=== PATIENT | male | born 1950 | race Caucasian/White ===

== ENCOUNTER → 2017-08-31 | Outpatient (CLI) | payer MEDICARE, OTHER | END | disposition home or self-care (01) | LOC: Rad HDHVI 13:33 | PROVIDERS: ATTEND Internal Medicine Cardiovascular Disease | DX: I10 Essential (primary) hypertension (principal); G45.9 Transient cerebral ischemic attack, unspecified | CPT/HCPCS: 93306; 93880 ==

== ENCOUNTER 2017-09-15 22:13 | Emergency (ER) | payer MEDICARE, OTHER ==
[~2017-09-15] VITALS: Ht 172.7 cm; Wt 75.3 kg
[2017-09-15 23:05] LABS: Basophils # (auto) 0 uL; Basophils % (auto) 0.6 % (0.0-2.0); Eosinophils # (auto) 0 uL; Eosinophils % (auto) 0.5 % (0.0-7.0); Hematocrit 47.4 % (41.0-53.0); Hemoglobin 16.4 g/dL (13.5-17.5); Lymphocytes # (auto) 1.1 uL; Lymphocytes % (auto) 15.2 % (10.0-50.0); Mean Corpuscular Hemoglobin 30.5 pg (28.0-32.0); Mean Corpuscular Hgb Conc. 34.6 g/dL (32.0-36.0); Mean Corpuscular Volume 88.3 fL (80.0-100.0); Mean Platelet Volume 7.6 fL (6.9-10.8); Monocytes # (auto) 0.6 uL; Monocytes % (auto) 9.1 % (0.0-12.0); Neutrophils # (auto) 5.2 uL; Neutrophils % (auto) 74.6 % (37.0-80.0); Nucleated Red Blood Cells % 0.1 %; Platelet Count (auto) 205 10^3/uL (140-450); Red Cell Distribution Width 13.4 % (11.8-14.3)
[2017-09-15 23:21] LABS: Albumin 3.7 g/dL (3.4-5.0); Anion Gap 7 (5-15); Aspartate Aminotransferase 23 U/L (15-37); BUN/Creatinine Ratio 21.2; Blood Urea Nitrogen 25 mg/dL (7-18); Calcium 9.2 mg/dL (8.5-10.1); Carbon Dioxide 29 mmol/L (21-32); Chloride 102 mmol/L (98-107); GFR African American 79 mL/min; GFR Non-African American 65 mL/min; Glucose 104 mg/dL (74-106); Potassium 3.7 mmol/L (3.5-5.1); Sodium 138 mmol/L (136-145)
[2017-09-15 23:24] LABS: Alkaline Phosphatase 63 U/L (45-117); Total Protein 7.4 g/dL (6.4-8.2)
[2017-09-16 08:50] VITALS: BP 125/88
== END 2017-09-16 09:21 | disposition home or self-care (01) ==
LOC: ER 22:13
DX: R41.0 Disorientation, unspecified (principal); R42 Dizziness and giddiness; I10 Essential (primary) hypertension; M19.90 Unspecified osteoarthritis, unspecified site; R10.9 Unspecified abdominal pain; E07.9 Disorder of thyroid, unspecified; Z86.73 Personal history of transient ischemic attack (TIA), and cerebral infarction without residual deficits
CPT/HCPCS: 36415; 70450; 76705; 80053; 80320; 85025

== ENCOUNTER → 2018-09-27 | Outpatient (CLI) | payer MEDICARE, BC | END | disposition home or self-care (01) | LOC: Rad HDHVI 14:09 | PROVIDERS: ATTEND Internal Medicine Cardiovascular Disease | DX: I12.9 Hypertensive chronic kidney disease with stage 1 through stage 4 chronic kidney disease, or unspecified chronic kidney disease (principal); N18.2 Chronic kidney disease, stage 2 (mild); G45.9 Transient cerebral ischemic attack, unspecified | CPT/HCPCS: 93306 ==

== ENCOUNTER → 2018-10-12 | Outpatient (CLI) | payer MEDICARE, BC ==
[~2018-10-12] VITALS: Ht 174 cm; Wt 74.8 kg
[~2018-10-12] MED LIST: ADENOSINE 63 MG in GIVE UN-DILUTED 0 ML IV ONE; ADENOSINE 90 MG/30 ML INJ IV ONE
== END | disposition home or self-care (01) ==
LOC: Rad HDHVI 14:33
PROVIDERS: ATTEND Internal Medicine Cardiovascular Disease
DX: I10 Essential (primary) hypertension (principal); R55 Syncope and collapse
CPT/HCPCS: 78452; 93005; 96374; 96375; A9500; J0153

== ENCOUNTER → 2019-10-08 | Outpatient (CLI) | payer MEDICARE, BC | END | disposition home or self-care (01) | LOC: Rad HDHVI 12:25 | PROVIDERS: ATTEND Internal Medicine Cardiovascular Disease | DX: I08.8 Other rheumatic multiple valve diseases (principal); R00.2 Palpitations; R07.89 Other chest pain; I10 Essential (primary) hypertension | CPT/HCPCS: 93306 ==

== ENCOUNTER → 2021-04-02 | Outpatient (CLI) | payer MEDICARE, BC | END | disposition home or self-care (01) | LOC: Rad HDHVI 16:08 | PROVIDERS: ATTEND Internal Medicine Cardiovascular Disease | DX: I10 Essential (primary) hypertension (principal); E78.5 Hyperlipidemia, unspecified | CPT/HCPCS: 93306 ==

== ENCOUNTER → 2021-04-21 | Outpatient (CLI) | payer MEDICARE, BC ==
[~2021-04-21] VITALS: Ht 175.3 cm; Wt 70.3 kg
[~2021-04-21] MED LIST changes: +ADENOSINE 59 MG in GIVE UN-DILUTED 0 ML IV ONE; -ADENOSINE 63 MG in GIVE UN-DILUTED 0 ML IV ONE; -ADENOSINE 90 MG/30 ML INJ IV ONE
== END | disposition home or self-care (01) ==
LOC: Rad HDHVI 08:35
PROVIDERS: ATTEND Internal Medicine Cardiovascular Disease
DX: I08.2 Rheumatic disorders of both aortic and tricuspid valves (principal); I10 Essential (primary) hypertension; E78.5 Hyperlipidemia, unspecified; R07.9 Chest pain, unspecified; Z82.49 Family history of ischemic heart disease and other diseases of the circulatory system
CPT/HCPCS: 78452; 93005; 96374; 96375; A9500

== ENCOUNTER → 2022-11-18 | Outpatient (CLI) | payer MEDICARE, BC ==
[~2022-11-18] VITALS: Ht 175.3 cm; Wt 69.4 kg
[~2022-11-18] MED LIST changes: +ADENOSINE 58 MG in GIVE UN-DILUTED 0 ML IV ONE; -ADENOSINE 59 MG in GIVE UN-DILUTED 0 ML IV ONE; +ADENOSINE 90 MG/30 ML INJ IV ONE
== END | disposition home or self-care (01) ==
LOC: Rad HDHVI 13:06
PROVIDERS: ATTEND Internal Medicine Cardiovascular Disease
DX: R07.89 Other chest pain (principal); I10 Essential (primary) hypertension; E78.5 Hyperlipidemia, unspecified; Z82.49 Family history of ischemic heart disease and other diseases of the circulatory system
CPT/HCPCS: 78452; 93005; 96374; 96375; A9500; J0153

== ENCOUNTER 2023-04-02 09:26 | Inpatient (IN) | payer MEDICARE, BC ==
[~2023-04-02] VITALS: Ht 172.7 cm; Wt 67.4 kg
[2023-04-02 12:27] LABS: Basophils # (auto) 0 10 ^3/uL (0-0.2); Basophils % (auto) 0.3 % (0.0-2.0); Eosinophils # (auto) 0 10 ^3/uL (0-0.8); Eosinophils % (auto) 0.4 % (0.0-7.0); Hematocrit 44.9 % (41.0-53.0); Hemoglobin 15.1 g/dL (13.5-17.5); Lymphocytes # (auto) 0.8 10 ^3/uL (0.4-5.4); Mean Corpuscular Hemoglobin 29.7 pg (28.0-32.0); Mean Corpuscular Hgb Conc. 33.7 g/dL (32.0-36.0); Mean Corpuscular Volume 88.1 fL (80.0-100.0); Monocytes # (auto) 0.7 10 ^3/uL (0-1.3); Monocytes % (auto) 10.6 % (0.0-12.0); Neutrophils # (auto) 5.2 10 ^3/uL (1.6-8.6); Neutrophils % (auto) 76.7 % (37.0-80.0); Nucleated Red Blood Cells % 0.1 %; Red Cell Distribution Width 13.8 % (11.8-14.3); White Blood Cell 6.8 10^3/uL (4.4-10.8)
[2023-04-02 12:33] LABS: Albumin 3.8 g/dL (3.4-5.0); BUN/Creatinine Ratio 28.3 (10.0-20.0); Calcium 9.5 mg/dL (8.5-10.1); Potassium 3.4 mmol/L (3.5-5.1)
[2023-04-02 12:35] LABS: Bilirubin, Total 1.6 mg/dL (0.2-1.0); Total Protein 7.3 g/dL (6.4-8.2)
[2023-04-02] MEDS ORDERED: cefTRIAXone 1GM/50ML D5W 50 ML IV ONE (13:00)
[2023-04-02] MEDS ORDERED: CLINDAMYCIN 600MG IV 50 ML IV ONE (13:00)
[2023-04-02] MEDS ORDERED: MORPHINE SULFATE INJ 2 MG/ml SYRG IV PRN (14:45)
[2023-04-02] MEDS ORDERED: NITROGLYCERIN 0.4 MG SL TAB SL PRN (14:45)
[2023-04-02] MEDS: ceFAZolin 2 GM/D5W100ml 100 ML IV SCH (22:26)
[2023-04-02] MEDS: ASCORBIC ACID 500 MG TAB PO SCH (22:26)
[2023-04-02] MEDS: MAGNESIUM OXIDE 400 MG TAB PO SCH (22:26)
[2023-04-03] MEDS: ceFAZolin 2 GM/D5W100ml 100 ML IV SCH ×3 (06:12→22:00)
[2023-04-03] MEDS: TRIAMTERENE/HCTZ 75/50MG TABLET PO SCH (10:00)
[2023-04-03 10:34] LABS: Basophils # (auto) 0 10 ^3/uL (0-0.2); Basophils % (auto) 0.4 % (0.0-2.0); Eosinophils # (auto) 0.1 10 ^3/uL (0-0.8); Eosinophils % (auto) 2.4 % (0.0-7.0); Lymphocytes # (auto) 0.9 10 ^3/uL (0.4-5.4); Lymphocytes % (auto) 16.3 % (10.0-50.0); Mean Corpuscular Hemoglobin 30.3 pg (28.0-32.0); Mean Corpuscular Hgb Conc. 34.2 g/dL (32.0-36.0); Mean Corpuscular Volume 88.8 fL (80.0-100.0); Monocytes # (auto) 0.6 10 ^3/uL (0-1.3); Monocytes % (auto) 10.5 % (0.0-12.0); Neutrophils # (auto) 3.9 10 ^3/uL (1.6-8.6); Neutrophils % (auto) 70.4 % (37.0-80.0); Nucleated Red Blood Cells % 0.1 %; Red Blood Cells 5.29 10^6/uL (4.5-5.90); Red Cell Distribution Width 13.9 % (11.8-14.3); White Blood Cell 5.5 10^3/uL (4.4-10.8)
[2023-04-03 10:39] LABS: Albumin 3.9 g/dL (3.4-5.0); Calcium 8.8 mg/dL (8.5-10.1); Potassium 3.4 mmol/L (3.5-5.1)
[2023-04-03 10:43] LABS: BUN/Creatinine Ratio 21.7 (10.0-20.0); Bilirubin, Total 1.1 mg/dL (0.2-1.0); Total Protein 7.2 g/dL (6.4-8.2)
[2023-04-03] MEDS: MAGNESIUM OXIDE 400 MG TAB PO SCH ×2 (11:01→22:24)
[2023-04-03] MEDS: CHOLECALCIFEROL (VITD3) 1,000UNIT=25mCg TAB PO SCH (11:01)
[2023-04-03] MEDS: POTASSIUM CHL 20 Meq TABLET PO SCH (11:01)
[2023-04-03] MEDS: FLUTICASONE PROP NASAL SPR 0.05 % (50MCG) 16GM EACHNOSTRI SCH (11:24)
[2023-04-03] MEDS: FLORASTOR (S. BOULARDII) 250 MG CAP PO SCH (11:29)
[2023-04-03] MEDS: MULTIPLE VITAMINS W/ MINERALS TAB PO SCH (11:29)
[2023-04-03 17:04] VITALS: BP 130/85
[2023-04-03] MEDS ORDERED: TRIA75TA55 (20:30)
[2023-04-03] MEDS ORDERED: CHOL20007 PO (20:30)
[2023-04-03] MEDS ORDERED: POTA-180 PO (20:30)
[2023-04-03] MEDS ORDERED: MAGN400T6 PO (20:30)
[2023-04-03] MEDS ORDERED: ASCO500T11 PO (20:30)
[2023-04-03] MEDS ORDERED: MULT-908 OR (20:31)
[2023-04-03] MEDS ORDERED: TERB1CRE32 EX (20:34)
[2023-04-03] MEDS ORDERED: LACTCAP35 OR (20:34)
[2023-04-03] MEDS ORDERED: MUPI2OIN2 EX (20:34)
[2023-04-03] MEDS ORDERED: FLUT1SUS (20:34)
[2023-04-03] MEDS ORDERED: SIME1CAP7 PO (20:37)
[2023-04-03 22:00] VITALS: BP 127/79
[2023-04-03] MEDS ORDERED: ceFAZolin 1GM/50ML 100 ML IV ONE (22:07)
[2023-04-03] MEDS: ASCORBIC ACID 500 MG TAB PO SCH (22:24)
[2023-04-04] VITALS (7 sets, daily range): BP systolic 119–137; BP diastolic 61–82
[2023-04-04] MEDS: ceFAZolin 2 GM/D5W100ml 100 ML IV SCH ×3 (05:40→22:27)
[2023-04-04] MEDS: MULTIPLE VITAMINS W/ MINERALS TAB PO SCH (09:42)
[2023-04-04] MEDS: POTASSIUM CHL 20 Meq TABLET PO SCH (09:42)
[2023-04-04] MEDS: CHOLECALCIFEROL (VITD3) 1,000UNIT=25mCg TAB PO SCH (09:42)
[2023-04-04] MEDS: FLORASTOR (S. BOULARDII) 250 MG CAP PO SCH (09:42)
[2023-04-04] MEDS: MAGNESIUM OXIDE 400 MG TAB PO SCH ×2 (09:42→22:19)
[2023-04-04] MEDS: TRIAMTERENE/HCTZ 75/50MG TABLET PO SCH (09:43)
[2023-04-04] MEDS: FLUTICASONE PROP NASAL SPR 0.05 % (50MCG) 16GM EACHNOSTRI SCH (10:55)
[2023-04-04] MEDS ORDERED: POTASSIUM EFFERVESENT TAB 25 MEQ PO ONE (14:30)
[2023-04-04] MEDS: ASCORBIC ACID 500 MG TAB PO SCH (18:02)
[2023-04-05] VITALS (7 sets, daily range): BP systolic 114–142; BP diastolic 72–83
[2023-04-05] MEDS: ceFAZolin 2 GM/D5W100ml 100 ML IV SCH ×3 (06:46→22:00)
[2023-04-05] MEDS: MULTIPLE VITAMINS W/ MINERALS TAB PO SCH (09:34)
[2023-04-05] MEDS: MAGNESIUM OXIDE 400 MG TAB PO SCH ×2 (09:35→22:00)
[2023-04-05] MEDS: TRIAMTERENE/HCTZ 75/50MG TABLET PO SCH (09:35)
[2023-04-05] MEDS: POTASSIUM CHL 20 Meq TABLET PO SCH (09:35)
[2023-04-05] MEDS: FLORASTOR (S. BOULARDII) 250 MG CAP PO SCH (09:36)
[2023-04-05] MEDS: FLUTICASONE PROP NASAL SPR 0.05 % (50MCG) 16GM EACHNOSTRI SCH (09:37)
[2023-04-05] MEDS: CHOLECALCIFEROL (VITD3) 1,000UNIT=25mCg TAB PO SCH (09:43)
[2023-04-05] MEDS: ASCORBIC ACID 500 MG TAB PO SCH (16:45)
[2023-04-06 05:00] VITALS: BP 120/77
[2023-04-06] MEDS: ceFAZolin 2 GM/D5W100ml 100 ML IV SCH ×2 (06:28→14:46)
[2023-04-06 08:10] VITALS: BP 142/98
[2023-04-06 09:00] VITALS: BP 142/73
[2023-04-06] MEDS: MULTIPLE VITAMINS W/ MINERALS TAB PO SCH (10:03)
[2023-04-06] MEDS: POTASSIUM CHL 20 Meq TABLET PO SCH (10:09)
[2023-04-06] MEDS: CHOLECALCIFEROL (VITD3) 1,000UNIT=25mCg TAB PO SCH (10:10)
[2023-04-06] MEDS: FLUTICASONE PROP NASAL SPR 0.05 % (50MCG) 16GM EACHNOSTRI SCH (10:10)
[2023-04-06] MEDS: FLORASTOR (S. BOULARDII) 250 MG CAP PO SCH (10:11)
[2023-04-06] MEDS: MAGNESIUM OXIDE 400 MG TAB PO SCH (10:11)
[2023-04-06] MEDS: TRIAMTERENE/HCTZ 75/50MG TABLET PO SCH (11:50)
[2023-04-06 13:00] VITALS: BP 125/74
[2023-04-06 17:29] VITALS: BP 120/62
[2023-04-06] MEDS: ASCORBIC ACID 500 MG TAB PO SCH (18:14)
== END 2023-04-06 19:30 | disposition home or self-care (01) | DRG 603 ==
LOC: ER 09:26 → TELE 14:40 → TELE-CENTR 04-03 17:03
PROVIDERS: ADMIT Internal Medicine Cardiovascular Disease; ATTEND Internal Medicine Cardiovascular Disease
DX: L03.116 Cellulitis of left lower limb (principal); A46 Erysipelas; I10 Essential (primary) hypertension; E86.9 Volume depletion, unspecified; E87.6 Hypokalemia; Z88.0 Allergy status to penicillin; Z88.8 Allergy status to other drugs, medicaments and biological substances; Z86.73 Personal history of transient ischemic attack (TIA), and cerebral infarction without residual deficits; I80.3 Phlebitis and thrombophlebitis of lower extremities, unspecified
CPT/HCPCS: 36415; 80053; 83605; 85025; 87040; 93971; 96365; G0378; J0690; J0696

== ENCOUNTER 2023-08-07 21:39 | Emergency (ER) | payer MEDICARE, BC ==
[~2023-08-07] VITALS: Ht 172.7 cm; Wt 70.4 kg
[~2023-08-07 21:39] MED LIST changes: -ADENOSINE 58 MG in GIVE UN-DILUTED 0 ML IV ONE; -ADENOSINE 90 MG/30 ML INJ IV ONE; +ASCO500T11 PO; +CHOL20007 PO; +FLUT1SUS; +LACTCAP35 OR; +MAGN400T6 PO; +MULT-908 OR; +POTA-180 PO; +SIME1CAP7 PO; +TRIA75TA55
[2023-08-08 02:55] LABS: Basophils # (auto) 0 10 ^3/uL (0-0.2); Basophils % (auto) 0.5 % (0.0-2.0); Eosinophils # (auto) 0 10 ^3/uL (0-0.8); Eosinophils % (auto) 0.4 % (0.0-7.0); Hematocrit 44.8 % (41.0-53.0); Hemoglobin 15.2 g/dL (13.5-17.5); Lymphocytes # (auto) 1.3 10 ^3/uL (0.4-5.4); Lymphocytes % (auto) 22.2 % (10.0-50.0); Mean Corpuscular Volume 88.2 fL (80.0-100.0); Monocytes # (auto) 0.7 10 ^3/uL (0-1.3); Monocytes % (auto) 11.5 % (0.0-12.0); Neutrophils # (auto) 3.9 10 ^3/uL (1.6-8.6); Neutrophils % (auto) 65.4 % (37.0-80.0); Nucleated Red Blood Cells % 0.1 %; Red Blood Cells 5.07 10^6/uL (4.5-5.90); Red Cell Distribution Width 13.4 % (11.8-14.3); White Blood Cell 5.9 10^3/uL (4.4-10.8)
[2023-08-08 03:06] LABS: Chloride 103 mmol/L (98-107); Potassium 3.5 mmol/L (3.5-5.1); Sodium 140 mmol/L (136-145)
[2023-08-08 03:07] LABS: Anion Gap 7 (5-15); Calcium 9.7 mg/dL (8.5-10.1); Carbon Dioxide 30 mmol/L (20-30)
[2023-08-08 03:12] LABS: BUN/Creatinine Ratio 18.3 (10.0-20.0); Blood Urea Nitrogen 20 mg/dL (9-23); Glucose 92 mg/dL (74-106)
[2023-08-08 05:45] VITALS: BP 136/85; PULSE 61; RESP 18; TEMP 98.7; O2SAT 96
== END 2023-08-08 05:55 | disposition home or self-care (01) ==
LOC: ER 21:39
DX: Z00.00 Encounter for general adult medical examination without abnormal findings (principal); I10 Essential (primary) hypertension; F41.9 Anxiety disorder, unspecified; M19.90 Unspecified osteoarthritis, unspecified site; F32.9 Major depressive disorder, single episode, unspecified; Z86.73 Personal history of transient ischemic attack (TIA), and cerebral infarction without residual deficits; Z88.8 Allergy status to other drugs, medicaments and biological substances; Z88.0 Allergy status to penicillin; Z79.899 Other long term (current) drug therapy
CPT/HCPCS: 36415; 80048; 85025; 93005

== ENCOUNTER → 2024-02-15 | Outpatient (CLI) | payer MEDICARE, BC ==
[~2024-02-15] VITALS: Ht 174 cm; Wt 71.2 kg
[~2024-02-15] MED LIST changes: +ADENOSINE 60 MG in GIVE UN-DILUTED 0 ML IV ONE; +ADENOSINE 90 MG/30 ML INJ IV ONE
== END | disposition home or self-care (01) ==
LOC: Rad HDHVI 09:26
PROVIDERS: ATTEND Internal Medicine Cardiovascular Disease
DX: I10 Essential (primary) hypertension (principal); R07.89 Other chest pain; Z82.49 Family history of ischemic heart disease and other diseases of the circulatory system
CPT/HCPCS: 78452; 93005; 96374; 96375; A9500; J0153

== ENCOUNTER → 2024-02-23 | Outpatient (CLI) | payer MEDICARE, BC ==
[~2024-02-23] MED LIST changes: -ADENOSINE 60 MG in GIVE UN-DILUTED 0 ML IV ONE; -ADENOSINE 90 MG/30 ML INJ IV ONE
== END | disposition home or self-care (01) ==
LOC: Rad HDHVI 10:07
PROVIDERS: ATTEND Internal Medicine Cardiovascular Disease
DX: I08.3 Combined rheumatic disorders of mitral, aortic and tricuspid valves (principal); I11.9 Hypertensive heart disease without heart failure; E78.5 Hyperlipidemia, unspecified
CPT/HCPCS: 93306

== ENCOUNTER 2025-06-12 13:05 | Outpatient (CLI) | payer MEDICARE, BC | END 2025-06-12 17:00 | disposition home or self-care (01) | LOC: Rad HDHVI 13:05 | PROVIDERS: ATTEND Internal Medicine Cardiovascular Disease | DX: I08.8 Other rheumatic multiple valve diseases (principal); I11.9 Hypertensive heart disease without heart failure | CPT/HCPCS: 93306 ==

== ENCOUNTER 2025-06-26 12:56 | Outpatient (CLI) | payer MEDICARE, BC ==
[~2025-06-26] VITALS: Ht 175.3 cm; Wt 72.6 kg
[2025-06-26] MEDS ORDERED: ADENOSINE 90 MG/30 ML INJ IV ONE (13:05)
[2025-06-26] MEDS ORDERED: ADENOSINE 61 MG in GIVE UN-DILUTED 0 ML IV ONE (15:30)
== END 2025-06-26 17:00 | disposition home or self-care (01) ==
LOC: Rad HDHVI 12:56
PROVIDERS: ATTEND Internal Medicine Cardiovascular Disease
DX: I49.3 Ventricular premature depolarization (principal); I49.1 Atrial premature depolarization; I10 Essential (primary) hypertension; I07.1 Rheumatic tricuspid insufficiency; R07.89 Other chest pain; E78.00 Pure hypercholesterolemia, unspecified; Z82.49 Family history of ischemic heart disease and other diseases of the circulatory system
CPT/HCPCS: 78452; 93017; A9500; J0153

== ENCOUNTER 2025-07-10 14:46 | Outpatient (CLI) | payer MEDICARE, BC | END 2025-07-10 17:00 | disposition home or self-care (01) | LOC: Rad HDHVI 14:46 | PROVIDERS: ATTEND Internal Medicine Cardiovascular Disease | DX: I10 Essential (primary) hypertension (principal); R00.2 Palpitations | CPT/HCPCS: 93880 ==